=== PATIENT | male | born 1975 | race Hispanic/Latino ===

== ENCOUNTER 2017-01-16 18:38 | Emergency (ER) | payer OTHER ==
[~2017-01-16] VITALS: Ht 165.1 cm; Wt 69.9 kg
--- OUTSIDE RECORDS SUMMARY | 2017-01-16 18:43 | XMS REPORT ---
Author ELO Mccurdy [facility] eClinicalWorks Address Unknown Phone Unavailable Care Team Providers Care Community Cultural Development Officer Name Role Phone ELO PEMBERTON CP Unavailable Allergies, Adverse Reactions, Alerts Substance Reaction Event Type N.K.D.A. Info Not Available Non Drug Allergy Problems Problem Type Condition ICD-9 Code Onset Dates Condition Status Assessment Otitis media, purulent, acute, with spontaneous rupture of TM 382.01 Active Medications Medication Code System Code Instructions Start Date End Date Status Dosage Ibuprofen [facility] [address]-78 200 MG Orally every 6 hrs 1 tablet as needed Amoxicillin [facility] [address]-97 500 MG Orally 3 times a day Dec 04, 2014 Dec 14, 2014 2 tablet Procedures Procedure Coding System Code Date Office Visit, Est Pt., Level 3 CPT-4 33692 Dec 04, 2014 Vital Signs Date/Time: Dec 04, 2014 Temperature 98.0 F Weight 149.1 lbs Height 5'6" in BMI 24.06 Index Blood Pressure Diastolic 70 mmHg Blood Pressure Systolic 118 mmHg Cardiac Monitoring Heart Rate 78 bpm Results No Known Results Summary Purpose eClinicalWorks Submission
[2017-01-16] MEDS ORDERED: KETOROLAC 60 MG/2 ML VIAL IM STA (18:55)
[2017-01-16] MEDS ORDERED: LIDOCAINE 2% 20 ML (XYLOCAINE) VIAL INJ STA (18:55)
[2017-01-16] MEDS ORDERED: TETANUS,DIPTH,PERTUSS P/F (BOOSTRIX) 0.5 ML VIAL IM STA (18:55)
--- NOTE | 2017-01-16 18:55 | Diagnostic Imaging Report ---
INDICATION: Hand injury. COMPARISON: None. EXAMINATION: Three views of the right hand were obtained. FINDINGS: There is subluxation of the DIP, fifth digit. There is no obvious fracture. Soft tissue injury is present. There is no foreign body. There is likely chronic fracture deformity of the fifth metacarpal. IMPRESSION: Subluxation of the DIP, fifth digit. Dictated by: Dictated on workstation # [id number]
[2017-01-16] MEDS ORDERED: BUPIVACAINE 0.5% 30 ML (SENSORCAINE) VIAL INJ ONE (19:00)
[2017-01-16] MEDS ORDERED: oxyCODONE/APAP 5/325MG (PERCOCET 5) TABLET PO STA (19:36)
[2017-01-16] MEDS ORDERED: CEPH500C PO (20:59)
[2017-01-16] MEDS ORDERED: OXYC-471 PO (20:59)
[2017-01-16] MEDS ORDERED: RX-OXYCODONE/APAP 5-325 MG #4 TAB PK PO PRN (21:00)
--- NOTE | 2017-01-16 21:02 | ED Upper Extremity ---
General Chief Complaint: Upper Extremity Stated Complaint: R FINGER LACERATION Nursing Triage Note: Pt was grabbing a steer's tail and suffered trauma to distal right 5th finger. Nursing Sepsis Screen: No Definite Risk Source: patient, family Exam Limitations: no limitations Allergies and Home Medications Allergies Coded Allergies: No Known Drug Allergies (Unverified , 01/16/17) Home Medications No Active Prescriptions or Reported Meds Past Hkpxgwv-Mjepjl-Vtococ Hx Patient Social History Alcohol Use: Occasionally Uses Recreational Drug Use: No Smoking Status: Never a Smoker Recent Foreign Travel: No Contact w/Someone Who Travel: No Recent Infectious Disease Expo: No Physical Exam Vital Signs Vital Sign - Last 12Hours 01/16/17 18:46 Temp 97.5 Pulse 70 B/P (MAP) 119/86 Pulse Ox 98 O2 Delivery Room Air Capillary Refill : Less Than 3 Seconds Progress/Results/Core Measures Results/Orders My Orders Orders - ABDULAZIZ NUNN Hand, Right, 3 Views (01/16/17 18:42) Ketorolac Injection (Toradol Injection) (01/16/17 18:55) Dipht,Pertuss(Acell),Tet Adult (Boostrix (01/16/17 18:55) Lidocaine 2% Injection 20 Ml (Xylocaine (01/16/17 18:55) Bupivacaine 0.5% Injection (Sensorcaine (01/16/17 19:00) Oxycodone/Apap 5/325mg Tablet (Percocet (01/16/17 19:36) Rx-Oxycodone/Apap 5-325 Mg (Rx-Percocet (01/16/17 21:00) Vital Signs/I&O Vital Sign - Last 12Hours 01/16/17 18:46 Temp 97.5 Pulse 70 B/P (MAP) 119/86 Pulse Ox 98 O2 Delivery Room Air Blood Pressure Mean: 97 Departure Impression Impression: Primary Impression: Subluxation of distal interphalangeal joint of right little finger, initial encounter Additional Impression: Laceration of right ring finger Disposition: 01 HOME, SELF-CARE Condition: Improved Departure-Patient Inst. Decision time for Depature: 20:57 Referrals: JERMAINE BURNS MD Patient Instructions: Common Finger Injuries (DC), Laceration Repair With Stitches (DC) Add. Discharge Instructions: All discharge instructions reviewed with patient and/or family. Voiced understanding. Medications as instructed. Ibuprofen 800 mg by mouth every 8 hours as needed for pain. Elevate the right hand on pillows. Ice pack for 20 minute intervals as needed for pain. Tomorrow morning you may remove the bandage from the ring finger and shower with antibacterial soap. Apply triple antibiotic ointment twice daily for 3 days to the right ring finger wound and cover with a Band-Aid. Finger splint as instructed. Do not remove the splint from the little finger. Follow-up with Dr. Burns tomorrow in his office for recheck and further management of the little finger, call first thing in the morning for appointment time. Follow-up with Dr. Burns for suture removal of the ring finger in 10 days or return to the emergency department for suture removal. Return immediately to the emergency department for worsened pain, redness, fever , drainage, or any other concerns. Scripts Oxycodone HCl/Acetaminophen (Oxycodone-Acetaminophen 5-325) 1 Each Tablet 1 EACH PO Q4H Y for pain, #20 TAB 0 Refills Prov: ABDULAZIZ NUNN 01/16/17 Cephalexin (Cephalexin) 500 Mg Capsule 500 MG PO TID, #21 CAP 0 Refills Prov: ABDULAZIZ NUNN 01/16/17 Work/School Note: Work Release Form Date Seen in the Emergency Department: Jan 16, 2017 Return to Work: Jan 20, 2017 Other Restrictions Listed Below: left hand activities only until released by Dr. Burns Restrictions: no operation machinery or driving while taking narcotic pain medication. ABDULAZIZ NUNN Jan 16, 2017 21:02
[2017-01-16] MEDS ORDERED: RX-CEPHALEXIN (KEFLEX) 250 MG CAP PPK#4 PO STA (21:03)
[2017-01-16 21:25] VITALS: BP 138/92
== END 2017-01-16 21:25 | disposition home or self-care (01) ==
LOC: EDUNIT# 18:38 → ER 18:40
DX: S63.246A Subluxation of distal interphalangeal joint of right little finger, initial encounter (principal); S61.216A Laceration without foreign body of right little finger without damage to nail, initial encounter; Z23 Encounter for immunization; W26.9XXA Contact with unspecified sharp object(s), initial encounter
CPT/HCPCS: 73130; 90471; 90715; 96372; 99284